=== PATIENT | female | born 1990 | race Caucasian/White ===

== ENCOUNTER → 2020-03-08 | Outpatient (REF) | payer OTHER ==
[~2020-03-08] MED LIST: IBUP-1114 PO; MAPA500T2 PO; PRENTAB55 PO; PRENTAB9 PO
[2020-03-08 13:01] LABS: HEMATOCRIT 40.1 % (36.0-47.0); HEMOGLOBIN 13.7 g/dl (12.0-15.5); MEAN CORPUSCULAR HEMOGLOBIN 31.6 pg (27.0-33.0); MEAN CORPUSCULAR HGB CONC 34.2 g/dl (32.0-36.5); MEAN CORPUSCULAR VOLUME 92.4 fl (80.0-96.0); PLATELET COUNT, AUTOMATED 198 10^3/uL (150-450); RED BLOOD COUNT 4.34 10^6/uL (4.00-5.40); WHITE BLOOD COUNT 8.5 10^3/uL (4.0-10.0)
[2020-03-08 13:35] LABS: HCG, SERUM QUANTITATIVE 79384 MIU/ML
[2020-03-08 13:55] LABS: HEPATITIS C VIRUS ABY INDEX 0.1 INDEX (<0.8)
[2020-03-08 13:56] LABS: HIV 1&2 SCREEN CENTAUR NEGATIVE (NEGATIVE)
[2020-03-08 14:53] LABS: RUBELLA IgG QUALITATIVE IMMUNE (IMMUNE)
== END ==
LOC: M LAB REF 12:16
PROVIDERS: ATTEND Obstetrics & Gynecology
DX: Z32.01 Encounter for pregnancy test, result positive (principal)

== ENCOUNTER → 2020-03-20 | Outpatient (CLI) | payer OTHER ==
--- NOTE | 2020-03-20 19:05 | REP ---
Clinical: Dating and viability. Technique: Transabdominal first trimester obstetrical ultrasound with color Doppler evaluation. Findings: Single live early intrauterine identified. CRL of 45 mm corresponds to 11 weeks 2 days gestational age with estimated date of delivery 10/07/2020. heart rate equals 160 beats per minute. No subchorionic hemorrhage or abnormality identified. Bilateral maternal ovaries are normal. Impression: Single live early intrauterine at 11 weeks 2 days gestational age. Complete anatomical assessment should be performed at 19-20 weeks. Electronically Signed by Alberto Carson MD 03/20/2020 06:56 P
== END ==
LOC: M RAD 09:39
PROVIDERS: ATTEND Obstetrics & Gynecology
DX: O36.80X0 Pregnancy with inconclusive fetal viability, not applicable or unspecified (principal)

== ENCOUNTER → 2020-05-22 | Outpatient (CLI) | payer OTHER ==
--- NOTE | 2020-05-22 14:35 | REP ---
OBSTETRIC SONOGRAPHY: HISTORY: Supervision of for anatomy. Comparison sonography March 20, 2020. FINDINGS: Scanning through the gravid uterus demonstrates a viable single intrauterine gestation in a cephalic lie. motion is observed and heart rate is recorded at 144 beats per minute. An anterior fundal placenta is seen without evidence of previa or abruption grade 0. Amniotic fluid is subjectively normal. Closed cervical length is measured transabdominally at 3.8 cm. No extrauterine abnormality is observed. There has been appropriate interval growth. No abnormality is observed. spine imaging was less than optimal due to position. The following additional anatomic structures are identified and felt to be unremarkable: cranium, choroid plexus, cavum, cerebellum posterior fossa, face and profile, lungs, four-chamber heart with left and right ventricular outflow tract views, diaphragm, left-sided stomach, abdominal wall cord insertion, three-vessel cord, kidneys and bladder, upper and lower extremities. BIOMETRY CHART: BPD 4.9 cm = 2 -weeks 6 days HC 18.0 cm = 20 weeks 3 days AC 15.6 cm = 20 weeks 5 days FL 3.3 cm = 20 weeks 2 days HL 3.2 cm = 20 weeks 4 days HC/AC ratio normal 1.16 Cephalic index normal 0.76. Estimated weight 360 grams, 0 pounds 12 ounces, 63rd percentile for 20 weeks 1 day. IMPRESSION: Viable single intrauterine gestation at 20 weeks 4 days by today's composite sonographic criteria. Expected gestational age estimate based on prior sonography is 20 weeks 2 days. JESSICA by prior sonography October 07, 2020. spine is less than optimally seen due to position. Electronically Signed by Isra Quach MD 05/22/2020 03:01 P
== END ==
LOC: M RAD 10:36
PROVIDERS: ATTEND Obstetrics & Gynecology
DX: Z34.82 Encounter for supervision of other normal pregnancy, second trimester (principal)

== ENCOUNTER → 2020-07-15 | Outpatient (CLI) | payer OTHER ==
[2020-08-31 16:00] LABS: HEMATOCRIT 36.2 % (36.0-47.0); HEMOGLOBIN 11.7 g/dl (12.0-15.5); MEAN CORPUSCULAR HEMOGLOBIN 31.4 pg (27.0-33.0); MEAN CORPUSCULAR HGB CONC 32.3 g/dl (32.0-36.5); MEAN CORPUSCULAR VOLUME 97.1 fl (80.0-96.0); PLATELET COUNT, AUTOMATED 192 10^3/uL (150-450); RED BLOOD COUNT 3.73 10^6/uL (4.00-5.40); WHITE BLOOD COUNT 14.8 10^3/uL (4.0-10.0)
== END ==
LOC: M LAB 09:35
PROVIDERS: ATTEND Advanced Practice Midwife
DX: Z34.82 Encounter for supervision of other normal pregnancy, second trimester (principal); Z3A.00 Weeks of gestation of pregnancy not specified